=== PATIENT | male | born 1990 | race African-American/Black ===

== ENCOUNTER 2016-11-06 07:59 | Emergency (ER) | payer MEDICAID ==
[~2016-11-06] VITALS: Ht 188 cm; Wt 95.5 kg
[2016-11-06] MEDS ORDERED: KETOROLAC TROMETHAMINE 30 MG/ML VIAL IVP ONE (08:15)
[2016-11-06] MEDS ORDERED: METOCLOPRAMIDE HCL 5 MG/ML 2 ML VIAL IVP ONE (08:15)
[2016-11-06] MEDS ORDERED: HALOPERIDOL LACTATE 5 MG/ML VIAL IM ONE (08:15)
[2016-11-06] MEDS ORDERED: SODIUM CHLORIDE 0.9% 1,000 ML IV ONE (08:15)
[2016-11-06 08:35] LABS: BASOPHILS % (AUTO) 0.4 % (0.0-2.0); EOSINOPHILS % (AUTO) 0.1 % (1.0-6.0); HEMOGLOBIN 16.2 g/dL (13.5-17.5); LYMPHOCYTES # (AUTO) 1.8 K/uL (1.0-4.8); LYMPHOCYTES % (AUTO) 13.3 % (22.0-44.0); MEAN CORPUSCULAR HEMOGLOBIN 26.9 pg (26.0-34.0); MEAN CORPUSCULAR HGB CONC 32.4 G/dL (31.0-37.0); MEAN CORPUSCULAR VOLUME 83 fL (80-100); MONOCYTES # (AUTO) 0.8 K/uL (0.1-1.0); MONOCYTES % (AUTO) 5.7 % (2.0-9.0); NEUTROPHILS # (AUTO) 10.9 K/uL (1.8-7.7); NEUTROPHILS % (AUTO) 80.5 % (40.0-70.0); PLATELET COUNT (AUTO) 275 K/uL (150-450); RED BLOOD CELL COUNT(AUTO) 6.03 MIL/uL (4.50-5.90); RED CELL DISTRIBUTION WIDTH 14.1 % (11.5-14.5); WHITE BLOOD COUNT (AUTO) 13.6 K/uL (4.5-11.0)
[2016-11-06 08:48] LABS: ANION GAP 18 mmol/L (8-16); CALCIUM, TOTAL 9.7 mg/dL (8.8-10.5); CARBON DIOXIDE 27 mmol/L (22-29); CHLORIDE 97 mmol/L (98-107); CREATININE 0.94 mg/dL (0.60-1.30); GLOMERULAR FILTR. RATE CALC > 60 mL/min (>60); POTASSIUM 3.1 mmol/L (3.5-5.1); SODIUM SERUM 142 mmol/L (136-145); UREA NITROGEN, BLOOD 7 mg/dL (7-18)
[2016-11-06 08:56] LABS: ALANINE AMINOTRANSFERASE 70 U/L (12-78); ALBUMIN 4.2 g/dL (3.4-5.0); ASPARTATE AMINOTRANSFERASE 46 U/L (15-37); BILIRUBIN,TOTAL 0.6 mg/dL (0.1-1.0); TOTAL PROTEIN, SERUM 8.5 g/dL (6.4-8.2)
[2016-11-06 09:25] LABS: APPEARANCE,URINE CLEAR (CLEAR); GLUCOSE, URINE (UA) NEGATIVE (NEGATIVE); KETONES,URINE >=80 mg/dL (NEGATIVE); LEUKOCYTE ESTERASE ,URINE TRACE (NEGATIVE); OCCULT BLOOD,URINE NEGATIVE (NEGATIVE); PH,URINE 8.5 (5.0-8.0); PROTEIN,URINE SEE CONFIRM (NEGATIVE)
[2016-11-06 09:29] LABS: ADD UA MICROSCOPIC YES
[2016-11-06 09:43] LABS: SULFOSALICYLIC ACID,URINE Trace (Negative)
[2016-11-06 09:44] LABS: RBC,URINE None Seen /HPF (0-2); SQUAMOUS EPITHELIAL CELL,UR Few /LPF (None Seen)
[2016-11-06 09:46] VITALS: BP 145/60
== END 2016-11-06 10:28 | disposition home or self-care (01) ==
LOC: EMS 08:02
DX: N39.0 Urinary tract infection, site not specified (principal); F29 Unspecified psychosis not due to a substance or known physiological condition; F17.210 Nicotine dependence, cigarettes, uncomplicated
CPT/HCPCS: 36415; 80053; 80307; 81001; 81002; 83690; 85025; 87086; 96361; 96372; 96374; 96375; 99285; G0480; J1630; J1885; J2765; J7030

== ENCOUNTER 2017-04-28 08:25 | Inpatient (IN) | payer MEDICAID ==
[~2017-04-28] VITALS: Ht 188 cm; Wt 77.3 kg
[2017-04-28 09:06] LABS: BASOPHILS % (AUTO) 0.2 % (0.0-2.0); EOSINOPHILS % (AUTO) 2.9 % (1.0-6.0); HEMATOCRIT 43.7 % (41-53); HEMOGLOBIN 14.5 g/dL (13.5-17.5); LYMPHOCYTES # (AUTO) 2.1 K/uL (1.0-4.8); LYMPHOCYTES % (AUTO) 26.4 % (22.0-44.0); MEAN CORPUSCULAR HEMOGLOBIN 28.7 pg (26.0-34.0); MEAN CORPUSCULAR HGB CONC 33.2 G/dL (31.0-37.0); MEAN CORPUSCULAR VOLUME 87 fL (80-100); MONOCYTES # (AUTO) 0.7 K/uL (0.1-1.0); MONOCYTES % (AUTO) 9.2 % (2.0-9.0); NEUTROPHILS # (AUTO) 4.9 K/uL (1.8-7.7); NEUTROPHILS % (AUTO) 61.3 % (40.0-70.0); PLATELET COUNT (AUTO) 297 K/uL (150-450); RED BLOOD CELL COUNT(AUTO) 5.05 MIL/uL (4.50-5.90); RED CELL DISTRIBUTION WIDTH 14.7 % (11.5-14.5); WHITE BLOOD COUNT (AUTO) 7.9 K/uL (4.5-11.0)
[2017-04-28 09:18] LABS: ANION GAP 7 mmol/L (8-16); CALCIUM, TOTAL 8.8 mg/dL (8.8-10.5); CARBON DIOXIDE 28 mmol/L (22-29); CHLORIDE 105 mmol/L (98-107); CREATININE 0.82 mg/dL (0.60-1.30); GLOMERULAR FILTR. RATE CALC > 60 mL/min (>60); POTASSIUM 3.7 mmol/L (3.5-5.1); SODIUM SERUM 140 mmol/L (136-145); UREA NITROGEN, BLOOD 15 mg/dL (7-18)
[2017-04-28 09:24] LABS: ALANINE AMINOTRANSFERASE 37 U/L (12-78); ALBUMIN 3.6 g/dL (3.4-5.0); ASPARTATE AMINOTRANSFERASE 26 U/L (15-37); BILIRUBIN,TOTAL 0.4 mg/dL (0.1-1.0); TOTAL PROTEIN, SERUM 6.8 g/dL (6.4-8.2)
[2017-04-28] MEDS ORDERED: HALOPERIDOL 5 MG TABLET PO ONE (10:00)
[2017-04-28] MEDS ORDERED: LORazepam 2 MG TABLET PO ONE (10:00)
[2017-04-28] MEDS ORDERED: LORazepam 2 MG TABLET PO PRN (10:30)
[2017-04-28] MEDS ORDERED: ZOLPIDEM TARTRATE 10 MG TABLET PO PRN (10:30)
[2017-04-28] MEDS ORDERED: HALOPERIDOL 5 MG TABLET PO PRN (10:30)
[2017-04-28 18:25] VITALS: BP 114/72
[2017-04-28 18:26] VITALS: BP 114/72
[2017-04-29] MEDS ORDERED: INFLUENZA VIRUS VACCINE QVS 2017-18 (3YR+)/PF 60 MCG/0.5 ML SYRINGE IM ONE (01:45)
[2017-04-29 05:42] VITALS: BP 116/66
[2017-04-29 09:11] VITALS: BP 123/72
[2017-04-29] MEDS ORDERED: MAG HYDROX/AL HYDROX/SIMETH ES 30 ML SUSPENSION UDCUP PO PRN (09:15)
[2017-04-29] MEDS ORDERED: MAGNESIUM HYDROXIDE SUSPENSION 30 ML UDCUP PO PRN (09:15)
[2017-04-29] MEDS ORDERED: ALBUTEROL SULFATE HFA 90 MCG/PUFF 8 GM INHALER IH PRN (09:15)
[2017-04-29] MEDS ORDERED: PETROLATUM,WHITE 71 GM JELLY TP PRN (09:15)
[2017-04-29] MEDS ORDERED: ONDANSETRON HCL 4 MG TABLET PO PRN (09:15)
[2017-04-29] MEDS ORDERED: BACITRACIN 28.4 GM OINTMENT TP PRN (09:15)
[2017-04-29] MEDS ORDERED: ACETAMINOPHEN 325 MG TABLET PO PRN (09:15)
[2017-04-29] MEDS ORDERED: LOPERAMIDE HCL 2 MG CAPSULE PO PRN (09:15)
[2017-04-29] MEDS ORDERED: CloNIDine HCL 0.1 MG TABLET PO PRN (09:15)
[2017-04-29] MEDS: NICOTINE 21 MG/24 HOUR PATCH TD SCH (13:14)
[2017-04-29 17:01] VITALS: BP 115/69
[2017-04-29] MEDS: OLANZapine 5 MG TABLET PO SCH (20:40)
[2017-04-30 00:36] VITALS: BP 101/61
[2017-04-30 08:37] VITALS: BP 123/65
[2017-04-30] MEDS: NICOTINE 21 MG/24 HOUR PATCH TD SCH (08:56)
[2017-04-30] MEDS: OLANZapine 5 MG TABLET PO SCH ×2 (08:56→21:16)
[2017-04-30 16:27] VITALS: BP 126/68
[2017-05-01 00:12] VITALS: BP 106/66
[2017-05-01] MEDS: NICOTINE 21 MG/24 HOUR PATCH TD SCH (09:06)
[2017-05-01] MEDS: OLANZapine 5 MG TABLET PO SCH ×2 (09:06→20:13)
[2017-05-01 10:37] VITALS: BP 121/64
[2017-05-01 16:13] VITALS: BP 118/72
[2017-05-02 01:44] VITALS: BP 118/68
[2017-05-02] MEDS: NICOTINE 21 MG/24 HOUR PATCH TD SCH (09:09)
[2017-05-02] MEDS: OLANZapine 5 MG TABLET PO SCH ×2 (09:09→20:52)
[2017-05-02 09:30] VITALS: BP 122/67
[2017-05-02 16:34] VITALS: BP 124/70
[2017-05-02 18:13] VITALS: BP 131/74
[2017-05-02] MEDS: IBUPROFEN 600 MG TABLET PO PRN (18:14)
[2017-05-03 00:01] VITALS: BP 121/60
[2017-05-03] MEDS: BENZOCAINE/MENTHOL LOZENGE MM PRN ×3 (07:09→20:31)
[2017-05-03] MEDS: NICOTINE 21 MG/24 HOUR PATCH TD SCH (09:25)
[2017-05-03] MEDS: OLANZapine 5 MG TABLET PO SCH ×2 (09:25→20:31)
[2017-05-03 10:12] VITALS: BP 129/82
[2017-05-03] MEDS: IBUPROFEN 600 MG TABLET PO PRN (12:55)
[2017-05-03 16:19] VITALS: BP 119/62
[2017-05-04 00:05] VITALS: BP 117/68
[2017-05-04 08:13] VITALS: BP 117/60
[2017-05-04] MEDS: OLANZapine 5 MG TABLET PO SCH (08:59)
[2017-05-04] MEDS: NICOTINE 21 MG/24 HOUR PATCH TD SCH (09:00)
[2017-05-04] MEDS ORDERED: OLAN5TAB2 PO (09:43)
[2017-05-04] MEDS ORDERED: NICO-704 TD ×2 (09:45→10:02)
[2017-05-04] MEDS: IBUPROFEN 600 MG TABLET PO PRN (12:55)
[2017-05-04] MEDS: BENZOCAINE/MENTHOL LOZENGE MM PRN (12:56)
== END 2017-05-04 13:45 | disposition home or self-care (01) | DRG 751 ==
LOC: EMS 08:26 → B2S 13:09 → B3A 13:09
PROC: 3E0234Z Introduction of Serum, Toxoid and Vaccine into Muscle, Percutaneous Approach (ICD-10-PCS; principal; 2017-04-29)
DX: F29 Unspecified psychosis not due to a substance or known physiological condition (principal); F20.0 Paranoid schizophrenia; F17.210 Nicotine dependence, cigarettes, uncomplicated; G47.00 Insomnia, unspecified; Z71.6 Tobacco abuse counseling; Z71.41 Alcohol abuse counseling and surveillance of alcoholic; Z72.89 Other problems related to lifestyle; Z23 Encounter for immunization
CPT/HCPCS: 90471; 99285; G0480